=== PATIENT | female | born 1980 | race Caucasian/White ===

== ENCOUNTER → 2022-01-18 | Day surgery (SDC) | payer OTHER ==
[~2022-01-18] MED LIST: Adenosine 6 MG/2 ML VIAL ONE; Ascorbic Acid 500 mg Chewable Tablet ONE; Aspirin 325 MG TAB ONE; CeleCOXIB 100 MG CAP ONE; Fentanyl 100 MCG/2 ML VIAL ONE; Heparin 10,000 UNITS/ 10 ML VIAL ONE; Iopamidol 300 61% 100 ML VIAL FS ONE; Lidocaine 1% 20 ML MDV ONE; Midazolam HCl 5 mg/5 ml Vial ONE; Nitroglycerin 50 MG/250 ML BOT 0 ML ONE; Ondansetron PF 4 MG/2 ML Vial ONE; Sodium Chloride 0.9% 1,000 ML ONE
[2022-01-18 11:16] LABS: #Basophils 0.1 10x3/uL (0.0-0.2); #Eosinphils 0.3 10x3/uL (0.0-0.5); #Monocytes 0.7 10x3/uL (0.0-1.1); #Neutrophils 7.4 10x3/uL (1.5-8.4); %Basophils 0.8 % (0.0-2.0); %Eosinophils 2.5 % (0.0-6.0); %Lymphocytes 19.1 % (18.0-47.0); Hemoglobin 14.2 g/dL (12.0-15.5); Mean Corpuscular HGB CONC 34.5 g/dL (32.0-36.0); Mean Corpuscular Hemoglobin 32.2 pg (27.0-33.0); Mean Corpuscular Volume 93.4 fl (81.6-98.3); Mean Platelet Volume 10.4 fl (7.4-10.4); Platelet Count 304 10x3/uL (150-450); Red Blood Cell (RBC) Count 4.41 10x6/uL (3.90-5.03); White Blood Cell (WBC) Count 10.6 10x3/uL (3.5-10.5)
[2022-01-18 11:26] LABS: BHCG - Serum Negative (NEGATIVE); Pregs Control Background? CLEAR/WHITE (CLR/WHITE); Pregs Control Bar Appear? YES (CONTROL BAR)
[2022-01-18 11:28] VITALS: BMI 25.0
[2022-01-18 11:29] VITALS: BP 134/65; TEMP 98.1
[2022-01-18 11:29] LABS: PTT 27.6 sec (22.0-33.0); Prothrombin Time 10.9 sec (9.5-12.1)
[2022-01-18 11:30] LABS: Anion Gap 14 mmol/L (10-20); BUN (Urea Nitrogen) 17 mg/dL (7.0-18.7); Calc. Creatinine Clearance 112 mL/min (70-130); Calcium 9.7 mg/dL (7.8-10.44); Carbon Dioxide 25 mmol/L (22-29); Chloride 104 mmol/L (98-107); Estimated GFR 98; Glucose 87 mg/dL (70-105); Potassium 3.9 mmol/L (3.5-5.1); Sodium 139 mmol/L (136-145)
== END ==
LOC: CSHSDC 10:30
PROVIDERS: ATTEND Specialist
PROC: B2111ZZ Fluoroscopy of Multiple Coronary Arteries using Low Osmolar Contrast (ICD-10-PCS; principal; 2022-01-18)
PROC: 4A023N7 Measurement of Cardiac Sampling and Pressure, Left Heart, Percutaneous Approach (ICD-10-PCS; principal; 2022-01-18)
DX: R07.9 Chest pain, unspecified (principal); G40.909 Epilepsy, unspecified, not intractable, without status epilepticus; Z88.1 Allergy status to other antibiotic agents; Z86.16 Personal history of COVID-19; Z87.891 Personal history of nicotine dependence
CPT/HCPCS: 80048; 84703; 85025; 85610; 85730; 93005; 93010; 93458; 99152; 99153; C1760; C1769; J0153; J1644; J2250; J2405; J3010; J7050; Q9967